=== PATIENT | male | born 1945 | race Caucasian/White ===

== ENCOUNTER 2020-09-20 10:13 | Outpatient (CLI) | payer MEDICARE, OTHER ==
[2014-05-20 08:32] VITALS: BMI 31.0
[~2020-09-20 10:13] MED LIST: BAYER CHEWABLE81 MG PO; ZOCOR20 MG PO
--- NOTE | 2020-09-20 13:47 | NUR ---
PROCEDURE COMPLETED. MINIMAL NOSE BLEED AFTER PROCEDURE. BLEEDING STOPPED BEFORE DC HOME. DISCHARGE INSTRUCTIONS GIVEN. NO OTHER NEEDS ASSESSED.
== END 2020-09-20 12:07 | disposition home or self-care (01) ==
LOC: D.OPS 10:13
PROVIDERS: ATTEND Internal Medicine Gastroenterology
DX: R13.10 Dysphagia, unspecified (principal); K22.0 Achalasia of cardia